=== PATIENT | female | born 1975 | race Caucasian/White ===

== ENCOUNTER → 2018-11-11 | Outpatient (CLI) | payer BC ==
--- NOTE | 2018-11-12 11:14 | MM ---
Reason for exam: screening (asymptomatic). History: Family history of breast cancer in maternal cousin. Physical Findings: A clinical breast exam by your physician is recommended on an annual basis and results should be correlated with mammographic findings. MG 3D Screening Mammo W/Cad Bilateral CC and MLO view(s) were taken. No prior studies available for comparison. The breast tissue is heterogeneously dense. This may lower the sensitivity of mammography. No discrete abnormality. ASSESSMENT: Negative, BI-RAD 1 RECOMMENDATION: Routine screening mammogram of both breasts in 1 year.
== END | disposition home or self-care (01) ==
LOC: RADMAMWWP 13:10
PROVIDERS: ATTEND Obstetrics & Gynecology
DX: Z12.31 Encounter for screening mammogram for malignant neoplasm of breast (principal); Z80.3 Family history of malignant neoplasm of breast
CPT/HCPCS: 77063; 77067

== ENCOUNTER → 2020-01-08 | Outpatient (CLI) | payer BC ==
--- NOTE | 2020-01-12 08:22 | MM ---
Reason for exam: screening (asymptomatic). Last mammogram was performed 1 year and 2 months ago. History: Family history of breast cancer in maternal cousin. Took hormonal contraceptives for 20 years. Physical Findings: A clinical breast exam by your physician is recommended on an annual basis and results should be correlated with mammographic findings. MG 3D Screening Mammo W/Cad Bilateral CC and MLO view(s) were taken. Prior study comparison: November 11, 2018, bilateral MG 3d screening mammo w/cad. The breast tissue is extremely dense which could obscure a lesion on mammography. No significant changes when compared with prior studies. ASSESSMENT: Negative, BI-RAD 1 RECOMMENDATION: Routine screening mammogram of both breasts in 1 year.
== END | disposition home or self-care (01) ==
LOC: RADMAMWWP 07:36
PROVIDERS: ATTEND Obstetrics & Gynecology
DX: Z12.31 Encounter for screening mammogram for malignant neoplasm of breast (principal); Z80.3 Family history of malignant neoplasm of breast
CPT/HCPCS: 77063; 77067

== ENCOUNTER → 2021-01-27 | Outpatient (CLI) | payer BC ==
--- NOTE | 2021-01-30 09:26 | MM ---
Reason for exam: clinical finding. Last mammogram was performed 1 year and 1 month ago. History: Family history of breast cancer in maternal cousin at age 51. Took hormonal contraceptives for 20 years. Physical Findings: Nurse Summary: 2cm nodule in the left breast at 3 o'clock (nurse TM). MG Diagnostic Mammo w CAD NAZARIO Bilateral CC, MLO, and XCCL view(s) were taken. Prior study comparison: January 08, 2020, bilateral MG 3d screening mammo w/cad. November 11, 2018, bilateral MG 3d screening mammo w/cad. The breast tissue is heterogeneously dense. This may lower the sensitivity of mammography. Asymmetric breast tissue in retro subareolar left breast at chest wall upper outer quadrant. This finding is changed when compared with previous exams. These results were verbally communicated with the patient and result sheet given to the patient on 01/27/21. ASSESSMENT: Incomplete: need additional imaging evaluation, BI-RAD 0 RECOMMENDATION: Ultrasound of the left breast.
--- NOTE | 2021-01-30 09:27 | USB ---
Reason for exam: additional evaluation requested from abnormal screening. History: Family history of breast cancer in maternal cousin at age 51. Took hormonal contraceptives for 20 years. US Breast Limited LT Left limited breast ultrasound including focal area of concern, retroareolar and axilla demonstrates a 2.2 x 1.0 x 2.0cm hypoechoic lesion at 3 o'clock. These results were verbally communicated with the patient and result sheet given to the patient on 01/27/21. ASSESSMENT: Suspicious, BI-RAD 4 RECOMMENDATION: Ultrasound core biopsy of the left breast. Called Dr. Albright's office with mammographic findings and has scheduled an appointment for the patient for 02/08/21 at 10:[address] Strong. Biopsy scheduled for 01/30/21 at 1:00. PRELIMINARY REPORT CALLED AND FAXED TO DR. STRONG ON 01/30/21.
== END | disposition home or self-care (01) ==
LOC: RADMAMWWP 07:38
PROVIDERS: ATTEND Obstetrics & Gynecology
DX: N64.89 Other specified disorders of breast (principal); Z80.3 Family history of malignant neoplasm of breast; Z79.3 Long term (current) use of hormonal contraceptives
CPT/HCPCS: 77066

== ENCOUNTER → 2021-01-30 | Day surgery (SDC) | payer BC ==
[2021-01-30 12:12] VITALS: RESP 16
[2021-01-30 13:28] VITALS: BP 135/84; PULSE 81; TEMP 98.1
--- NOTE | 2021-01-30 13:45 | USB ---
EXAMINATION TYPE: US biopsy breast VAD LT, MG diagnostic mammo LT wo CAD DATE OF EXAM: 01/30/2021 CLINICAL HISTORY: R92.8 Abnormal Mammogram. TECHNIQUE: Ultrasound guided core biopsy of left 3:00 breast. COMPARISON: NONE FINDINGS: The procedure of ultrasound guided core biopsy was explained to the patient. Benefits, alternatives, and risks were discussed. An informed consent was then obtained. The patient was placed in supine positioning for imaging and for the procedure. The overlying skin was prepped and draped in usual sterile fashion. Lidocaine buffered with bicarbonate was used as anesthetic into the skin and subcutaneous tissue up to area of concern in the left 3:00 breast. Under ultrasound guidance, a 12-gauge vacuum assisted biopsy gun device was used to obtain 4 core samples. Following this, a biopsy clip was left in lesion. Postprocedural mammogram demonstrates appropriate clip placement. The patient tolerated the procedure well without any immediate complication. The patient was kept in the radiology department for short stay after the procedure and then discharged home in stable condition. IMPRESSION: Successful, uncomplicated ultrasound guided core biopsy of area of concern in the left 3:00 breast, full pathology results to follow. Pathology Results: Benign LEFT BREAST, THREE O'CLOCK, ULTRASOUND GUIDED CORE BIOPSY: Fibroadenoma. Recommendation Follow up ultrasound of the left breast in 6 months. NATY
== END ==
LOC: RADUSWWP 12:03
PROVIDERS: ATTEND Student in an Organized Health Care Education/Training Program
DX: D24.2 Benign neoplasm of left breast (principal)
CPT/HCPCS: 19083; 88305; 77065; A4648; J2001

== ENCOUNTER → 2022-02-27 | Outpatient (CLI) | payer BC ==
[2022-02-27 14:20] LABS: HCT 40.8 % (37.2-46.3); HGB 13.4 g/dL (12.0-15.0); MCH 30.8 pg (27.0-32.0); MCHC 32.8 g/dL (32.0-37.0); MCV 93.8 fL (80.0-97.0); Mean Platelet Volume 10.9 fL (9.5-12.2); NRBC Per 100 WBC 0 /100 WBCS (0.0-0.0); Platelet Count 221 X 10*3/uL (140-440); RBC 4.35 X 10*6/uL (4.10-5.20); RDW 13.2 % (11.5-14.5); WBC 5.83 X 10*3/uL (4.50-10.00)
[2022-02-27 16:15] LABS: Follicle Stimulating Hormone 11.5 mIU/mL; Testosterone 23.8 ng/mL (9.01-47.94)
[2022-02-27 16:24] LABS: Progesterone 1.1 ng/mL; Thyroid Peroxidase Antibodies 12.3 U/mL (0.0-33.0)
--- NOTE | 2022-02-28 09:29 | MM ---
Reason for Exam: Screening (asymptomatic). Last mammogram was performed 1 year(s) and 1 month(s) ago. Patient History: Menarche at age 16. First Full-Term at age 31. Patient used Hormonal Contraceptives for 20 years. 01/30/2021, Benign Core Biopsy on the left side. Maternal cousin had breast cancer, age 51. Last menstrual period: 02/15/2022 Risk Values: Lyndsey 5 year model risk: 1.2%. NCI Lifetime model risk: 11.8%. Prior Study Comparison: 01/08/2020 Bilateral Screening Mammogram, [facility]. 01/27/2021 Bilateral Diagnostic Mammogram, [facility]. 01/30/2021 Left Diagnostic Mammogram, [facility]. Tissue Density: The breast tissue is extremely dense which could obscure a lesion on mammography. Findings: Analyzed By CAD. Mammotome biopsy clip in the left breast posteriorly is now present. Asymmetric prominent soft tissue upper aspect right breast unchanged from prior studies. Benign appearing bilateral axillary lymph nodes are redemonstrated. There is no suspicious new group of microcalcifications or new suspicious mass in either breast. Overall Assessment: Benign, BI-RAD 2 Management: Screening Mammogram of both breasts in 1 year. Some advise bilateral breast ultrasound surveillance in patients with background dense tissue. A clinical breast exam by your physician is recommended on an annual basis and results should be correlated with mammographic findings. Electronically signed and approved by: Km Sheets M.D.
== END | disposition home or self-care (01) ==
LOC: RADMAMWWP 08:07
PROVIDERS: ATTEND Obstetrics & Gynecology
DX: Z12.31 Encounter for screening mammogram for malignant neoplasm of breast (principal); R53.83 Other fatigue; R45.4 Irritability and anger; Z80.3 Family history of malignant neoplasm of breast
CPT/HCPCS: 77067; 82306; 82607; 82670; 83001; 84144; 84403; 84443; 84481; 85027; 86376

== ENCOUNTER → 2023-06-20 | Outpatient (CLI) | payer BC ==
--- NOTE | 2023-06-21 20:00 | MM ---
Reason for Exam: Screening (asymptomatic). Last mammogram was performed 1 year(s) and 4 month(s) ago. Patient History: Menarche at age 16. First Full-Term at age 31. Patient used Hormonal Contraceptives for 20 years. 01/30/2021, Benign Core Biopsy on the left side. Maternal cousin had breast cancer, age 51. Risk Values: Lyndsey 5 year model risk: 1.3%. NCI Lifetime model risk: 11.5%. Prior Study Comparison: 01/27/2021 Bilateral Diagnostic Mammogram, [facility]. 01/30/2021 Left Diagnostic Mammogram, [facility]. 02/27/2022 Bilateral MG screening mammo w CAD, [facility]. Tissue Density: The breast tissue is heterogeneously dense. This may lower the sensitivity of mammography. Findings: Analyzed By CAD. Microclip left breast from prior biopsy. There is no suspicious group of microcalcifications or new suspicious mass in either breast. Overall Assessment: Benign, BI-RAD 2 Management: Screening Mammogram of both breasts in 1 year. . Patient should continue monthly self-breast exams. A clinical breast exam by your physician is recommended on an annual basis. This exam should not preclude additional follow-up of suspicious palpable abnormalities. Note on Lyndsey scores and lifetime risk: 1. A Lyndsey score greater than 3% is considered moderate risk. If this is the case, consider specialist referral to assess eligibility for a risk reducing agent. 2. If overall lifetime risk for the development of breast cancer is 20% or higher, the patient may qualify for future screening with alternating mammogram and breast MRI. Electronically signed and approved by: Shannon Redman M.D. Radiologist
== END | disposition home or self-care (01) ==
LOC: RADMAMWWP 07:43
PROVIDERS: ATTEND Obstetrics & Gynecology
DX: Z12.31 Encounter for screening mammogram for malignant neoplasm of breast (principal); Z80.3 Family history of malignant neoplasm of breast
CPT/HCPCS: 77067

== ENCOUNTER → 2024-08-13 | Outpatient (CLI) | payer BC ==
--- NOTE | 2024-08-13 11:20 | USB ---
Reason for Exam: Clinical finding. Patient History: Menarche at age 16. First Full-Term at age 31. Currently using Progesterone, starting at age 48. Patient used Hormonal Contraceptives for 20 years. 01/30/2021, Benign Core Biopsy on the left side. Maternal cousin had breast cancer, age 51. Risk Values: Lyndsey 5 year model risk: 1.2%. NCI Lifetime model risk: 11.3%. Technique: Method: Targeted. Doppler: Color. Patient Position: Supine. Prior Study Comparison: 01/30/2021 Left Diagnostic Mammogram, [facility]. 02/27/2022 Bilateral MG screening mammo w CAD, [facility]. 06/20/2023 Bilateral MG screening mammo w CAD, [facility]. Findings: The area of palpable concern of both breasts, the axilla of both breasts and the retroareolar of both breasts were scanned. Ultrasound of the bilateral palpable abnormalities are obtained. Left breast: At the site of previously sampled solid mass there is an enlarging fibroadenoma currently measuring 2.6 x 1.1 cm versus 2.0 x 1.0 cm. There may be internal degeneration with cystic areas seen as well as possible calcification. Six-month follow-up of a left-sided ultrasound is recommended. Right breast: No solid or cystic mass lesions are seen at the site of clinical concern at the right 10:00 position 5 cm from the nipple. At the second site of palpable abnormality which corresponds to the right 11:00 position 7 cm from the nipple a small lymph node is appreciated measuring 5 x 3 mm. Clinical management recommended. Overall Assessment: Probably benign, BI-RAD 3 Management: Diagnostic Breast Ultrasound of the left breast in 6 months. A clinical breast exam by your physician is recommended on an annual basis and results should be correlated with mammographic findings. This exam should not preclude additional follow-up of suspicious palpable abnormalities. Results were given to the patient verbally at the time of exam. [facility], , 08/13/2024 11:17 AM. Electronically signed and approved by: Christian Cota M.D. Radiologis
--- NOTE | 2024-08-13 11:26 | MM ---
Reason for Exam: Follow-up at short interval from prior study. Last mammogram was performed 1 year(s) and 2 month(s) ago. Patient History: Menarche at age 16. First Full-Term at age 31. Currently using Progesterone, starting at age 48. Patient used Hormonal Contraceptives for 20 years. 01/30/2021, Benign Core Biopsy on the left side. Maternal cousin had breast cancer, age 51. Risk Values: Lyndsey 5 year model risk: 1.2%. NCI Lifetime model risk: 11.3%. Prior Study Comparison: 01/08/2020 Bilateral Screening Mammogram, [facility]. 01/30/2021 Left Diagnostic Mammogram, [facility]. 02/27/2022 Bilateral MG screening mammo w CAD, [facility]. 06/20/2023 Bilateral MG screening mammo w CAD, [facility]. Tissue Density: The breasts are extremely dense, which lowers the sensitivity of mammography. Findings: Analyzed By CAD. No discrete visible masses at the sites of clinical concern bilaterally. No suspicious microcalcifications seen bilaterally. Bilateral breast ultrasound is recommended. Overall Assessment: Incomplete: need additional imaging evaluation, BI-RAD 0 Management: Diagnostic Breast Ultrasound of both breasts. . Results were given to the patient verbally at the time of exam. Patient should continue monthly self-breast exams. A clinical breast exam by your physician is recommended on an annual basis. This exam should not preclude additional follow-up of suspicious palpable abnormalities. Note on Lyndsey scores and lifetime risk: 1. A Lyndsey score greater than 3% is considered moderate risk. If this is the case, consider specialist referral to assess eligibility for a risk reducing agent. 2. If overall lifetime risk for the development of breast cancer is 20% or higher, the patient may qualify for future screening with alternating mammogram and breast MRI. [facility], , 08/13/2024 11:24 AM. Electronically signed and approved by: Christian Cota M.D. Radiologis
== END | disposition home or self-care (01) ==
LOC: RADMAMWWP 10:24
PROVIDERS: ATTEND Obstetrics & Gynecology
DX: N63.21 Unspecified lump in the left breast, upper outer quadrant (principal); R92.343 Mammographic extreme density, bilateral breasts; Z92.0 Personal history of contraception; Z80.3 Family history of malignant neoplasm of breast
CPT/HCPCS: 77062; 77066